=== PATIENT | female | born 1975 | race Caucasian/White ===

== ENCOUNTER 2025-07-20 09:17 | Outpatient (CLI) | payer OTHER, SELFPAY ==
--- NOTE | ~2025-07-20 | XR_ITS ---
EXAMINATION: XR lumbar spine 2-3V DATE: 07/20/2025 10:02 INDICATION: Lower back pain TECHNIQUE: 3 images of the lumbar spine were obtained. COMPARISON: None. FINDINGS: There is bowel gas and stool projecting over the pelvis which limits evaluation. There are a few less than 1.0 cm calcifications projecting over the pelvis which may represent phleboliths, however, a distal ureteral stone or bladder stone or possible. Moderate levoconvex curvature of the lumbar spine. Lumbar vertebral body heights are within normal limits. Anterior bridging osteophytes at the T12-L1 and L1-L2 levels. Grade 1/2 anterolisthesis of L5 on S1. Severe intervertebral disc space narrowing at L5-S1 level. IMPRESSION: 1. No compression fracture in the lumbar spine. 2. Severe intervertebral disc space narrowing at the L5-S1 level. 3. Grade 1/2 anterolisthesis of L5 on S1. If symptoms persist or worsen, consider a short-term follow-up study or MRI imaging for further assessment. Reviewed, dictated and finalized at location Q. IMPRESSION: 1. No compression fracture in the lumbar spine. 2. Severe intervertebral disc space narrowing at the L5-S1 level. 3. Grade 1/2 anterolisthesis of L5 on S1. If symptoms persist or worsen, consider a short-term follow-up study or MRI bradley ging for further assessment.
--- OUTSIDE RECORDS SUMMARY | 2025-07-20 09:26 | XMS_ITS | Encounter Summary ---
Author Organization [facility] Address [address] [place] [address] Phone Care Team Providers Care Chief Orthoptist Name Role Phone Davon Vazquez MD Primary Care Provider [phone] No, Physician Unavailable Encounter Details Date Type Department Care Team (Late st Contact Info) Description 12/28/2017 Orders Only [facility] ProviderLars MD [address] [place] [id number] Social History Tobacco Use Types Packs/Day Years Used Date Smoking Tobacco: Never Smokeless Tobacco: Never Alcohol Use Standard Drinks/Week Comments Yes 0 (1 standard drink = 0.6 oz pur e alcohol) Comments Unknown Sex and Gender Information Value Date Recorded Sex Assigned at Not on file Legal Sex Female 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 Historical Provider LAB BLOOD ORDERABLES Annabelle l Result documented in this encounter Visit Diagnoses Not on filedocumented in this encounter Care Teams Chief Orthoptist Relationship Specialty Start Date End Date Davon Vazquez MD [address] [place] [address] PCP - General 02/04/17 No, Physician 01/09/20 documented as of this encounter
== END 2025-07-20 09:18 | disposition home or self-care (01) ==
LOC: ANHLAB 09:24
PROVIDERS: PCP Family Medicine; Visit Provider Chiropractor
DX: M99.03 Segmental and somatic dysfunction of lumbar region (principal); M99.07 Segmental and somatic dysfunction of upper extremity; M99.05 Segmental and somatic dysfunction of pelvic region
CPT/HCPCS: 72100